=== PATIENT | female | born 1980 | race Two or more races ===

== ENCOUNTER 2017-10-27 12:02 | Emergency (ER) | payer OTHER ==
[2017-10-27 12:09] VITALS: O2SAT 100
[2017-10-27] MEDS ORDERED: Lidocaine 2% w Epi 1:100,000 Inj IJ ONE ×2 (12:22→12:25)
--- NOTE | 2017-10-27 13:03 | C.PDOC ---
History Of Present Illness 37 year old female presents to the ED for evaluation of pain and bleeding to her right palm after she injured the area earlier today. Patient states she was shredding vegetables to make chips when she accidentally cut herself with the shredder. She notes active bleeding from the area and states her pain is 8/10. Patient does not recall when she received her last Tetanus immunization. She denies any other injuries and extremity numbness/weakness at this time. Time Seen by Provider: 10/27/17 12:10 Chief Complaint (Nursing): Abnormal Skin Integrity History Per: Patient History/Exam Limitations: no limitations Onset/Duration Of Symptoms: Hrs Current Symptoms Are (Timing): Still Present Location Of Injury: Right: Hand (palm ) Quality Of Symptoms: Painful, Other (actively bleeding ) Additional History Per: Patient Past Medical History Reviewed: Historical Data, Nursing Documentation, Vital Signs Vital Signs: Last Vital Signs Temp 98.2 F 10/27/17 13:14 Pulse 90 10/27/17 13:14 Resp 20 10/27/17 13:14 BP 120/78 10/27/17 13:14 Pulse Ox 100 10/27/17 15:33 - Medical History PMH: No Chronic Diseases Surgical History: No Surg Hx Family History: States: Unknown Family Hx - Social History Hx Alcohol Use: No Hx Substance Use: No - Immunization History Hx Tetanus Toxoid Vaccination: No Hx Influenza Vaccination: No Hx Pneumococcal Vaccination: No Review Of Systems Musculoskeletal: Positive for: Other (right palm pain ) Skin: Positive for: Other (bleeding from right palm ) Neurological: Negative for: Weakness, Numbness Physical Exam - Physical Exam Appears: Non-toxic, No Acute Distress Skin: Warm, Dry, Other (large avulsion to lateral aspect of proximal palm that is confluent with a deep laceration to the medial palm ) Extremity: Normal ROM, Tenderness (right palm ), Capillary Refill (less than 2 seconds ) Pulses: Right Radial: Normal Neurological/Psych: Oriented x3, Normal Speech, Normal Cognition, Normal Sensation ED Course And Treatment O2 Sat by Pulse Oximetry: 100 (on RA) Pulse Ox Interpretation: Normal Laceration - Laceration Repair right palm Wound Length (In cm): 5 Wound Cleansed With: Betadine, Sterile Saline Wound Examination: Irrigated With Saline, No FB With Wound Exploration, No Tendon Injury With Wound Exploration Wound Closure: Suture Suture Technique And Material Used: Interrupted Wound Complexity: Simple Medical Decision Making Medical Decision Making: Plan: * Keflex PO * Motrin PO * Tetanus immunization IM * laceration repair * reassess and disposition Progress: Motrin PO and Keflex PO administered. Tetanus immunization administered. Procedure Note: Wound cleaned in a sterile fashion with Betadine and sterile saline. Local anesthesia achieved with 2% lidocaine with epinephrine. Wound irrigated with NS and explored. No FB seen. No tendon injury. Fifteen simple interrupted sutures placed. Wound was dressed appropriately. Patient tolerated well with minimal bleeding. On reassessment, patient is resting comfortably and is showing no signs of distress. Patient is stable for discharge and is advised to follow up with her PMD within 1-2 days for further evaluation. Disposition Counseled Patient/Family Regarding: Diagnosis, Need For Followup - Disposition Disposition: HOME/ ROUTINE Disposition Time: 13:00 Condition: STABLE Instructions: Laceration (ED) Forms: General Discharge Instructions, [facility] (Citizen [place]), Work Excuse - POA Present On Arrival: None - Clinical Impression Clinical Impression: Laceration of hand - Scribe Statement The provider has reviewed the documentation as recorded by the Scribe (Amparo Barajas) Provider Attestation: All medical record entries made by the Scribe were at my direction and personally dictated by me. I have reviewed the chart and agree that the record accurately reflects my personal performance of the history, physical exam, medical decision making, and the department course for this patient. I have also personally directed, reviewed, and agree with the discharge instructions and disposition.
[2017-10-27 13:15] VITALS: BP 120/78; PULSE 90; RESP 20; TEMP 98.2
== END 2017-10-27 13:17 | disposition home or self-care (01) ==
LOC: C.ER 12:02
DX: S61.411A Laceration without foreign body of right hand, initial encounter (principal); W45.8XXA Other foreign body or object entering through skin, initial encounter